=== PATIENT | female | born 1965 | race Two or more races ===

== ENCOUNTER 2021-02-14 06:34 | Day surgery (SDC) | payer MEDICAID ==
[2021-02-13 09:10] LABS: BLOOD UREA NITROGEN,BUN 10 mg/dL (7.0-18.0); CARBON DIOXIDE,CO2 27.8 mmol/L (21.0-32.0); CHLORIDE,CL 106 mmol/L (98-107); GLUCOSE RANDOM 105 mg/dL (74-106); POTASSIUM,K 3.9 mmol/L (3.5-5.1); SODIUM,NA 142 mmol/L (136-145)
[~2021-02-14 06:34] MED LIST: Lactated Ringers 1,000 ML IV SCH
[2021-02-14] MEDS ORDERED: Midazolam 1 MG/ML 2 ML SDV ONE (07:06)
[2021-02-14] MEDS ORDERED: Propofol 200 MG/20 ML SDV ONE (07:06)
[2021-02-14] MEDS ORDERED: fentaNYL 250 MCG/5 ML SDV ONE (07:07)
--- NOTE | 2021-02-14 07:07 | PCM.PREANE ---
Preanesthetic Assessment - Anesthesia/Transfusion/Family Hx Anesthesia History: Prior Anesthesia Without Reaction Family History of Anesthesia Reaction: No Transfusion History: No Prior Transfusion(s) - Review of Systems General: No Symptoms Pulmonary: No Symptoms Cardiovascular: No Symptoms Gastrointestinal: No Symptoms Neurological: No Symptoms Other: Reports: None - Physical Assessment NPO Status Date: 02/14/21 NPO Status Time: 04:00 (medications with sip of water) Vital Signs: Last Vital Signs Temp 36.5 C 02/14/21 06:40 Pulse 61 02/14/21 06:40 Resp 15 02/14/21 06:40 BP 129/86 02/14/21 06:40 Pulse Ox 97 02/14/21 06:40 Height: 1.56 m Weight: 83.915 kg ASA Class: 2 Mental Status: Alert & Oriented x3 Airway Class: Mallampati = 3 Dentition: Reports: Implants, Missing Tooth/Teeth (right upper molor) Thyro-Mental Finger Breadths: 3 Mouth Opening Finger Breadths: 3 ROM/Head Extension: Full Lungs: Clear to Auscultation, Normal Respiratory Effort Cardiovascular: Regular Rate, Regular Rhythm - Lab Values: Laboratory Last Values WBC 6.55 K/uL (4.0-11.0) 02/13/21 08:30 RBC 4.16 M/uL (4.30-5.90) L 02/13/21 08:30 Hgb 13.5 g/dL (12.0-16.0) 02/13/21 08:30 Hct 41.4 % (36.0-46.0) 02/13/21 08:30 MCV 99.5 fL (80.0-98.0) H 02/13/21 08:30 MCH 32.5 pg (27.0-32.0) H 02/13/21 08:30 MCHC 32.6 g/dL (31.0-37.0) 02/13/21 08:30 RDW Std Deviation 46.9 fl (28.0-62.0) 02/13/21 08:30 RDW Coeff of Bren 13 % (11.0-15.0) 02/13/21 08:30 Plt Count 297 K/uL (150-400) 02/13/21 08:30 MPV 10.70 fL (7.40-12.00) 02/13/21 08:30 Nucleated RBC % 0.0 /100WBC 02/13/21 08:30 Nucleated RBCs # 0 K/uL 02/13/21 08:30 Sodium 142 mmol/L (136-145) 02/13/21 08:30 Potassium 3.9 mmol/L (3.5-5.1) 02/13/21 08:30 Chloride 106 mmol/L (98-107) 02/13/21 08:30 Carbon Dioxide 27.8 mmol/L (21.0-32.0) 02/13/21 08:30 BUN 10 mg/dL (7.0-18.0) 02/13/21 08:30 Creatinine 0.8 mg/dL (0.6-1.0) 02/13/21 08:30 Est Cr Clr Drug Dosing 59.95 mL/min 02/13/21 08:30 Estimated GFR (MDRD) > 60.0 ml/min 02/13/21 08:30 Glucose 105 mg/dL (74-106) 02/13/21 08:30 Calcium 8.7 mg/dL (8.5-10.1) 02/13/21 08:30 Total Bilirubin 0.3 mg/dL (0.2-1.0) 02/13/21 08:30 AST 18 IU/L (15-37) 02/13/21 08:30 ALT 28 IU/L (14-63) 02/13/21 08:30 Alkaline Phosphatase 79 U/L (46-116) 02/13/21 08:30 Total Protein 7.4 g/dL (6.4-8.2) 02/13/21 08:30 Albumin 3.5 g/dL (3.4-5.0) 02/13/21 08:30 Globulin 3.9 g/dL (2.6-4.0) 02/13/21 08:30 Albumin/Globulin Ratio 0.9 (0.9-1.6) 02/13/21 08:30 Blood Type A POSITIVE 02/13/21 08:30 Antibody Screen NEGATIVE 02/13/21 08:30 - Allergies Allergies/Adverse Reactions: Allergies Allergy/AdvReac Type Severity Reaction Status Date / Time Penicillins Allergy Rash Verified 02/08/21 13:01 - Acknowledgements Anesthesia Type Planned: General Anesthesia (Triple Valve Tester present during the evaluation. The patient understands and accepts the anesthetic risks and benefits of General Anesthesia. All questions answered. Consent signed. ) Pt an Appropriate Candidate for the Planned Anesthesia: Yes Alternatives and Risks of Anesthesia Discussed w Pt/Guardian: Yes Pt/Guardian Understands and Agrees with Anesthesia Plan: Yes PreAnesthesia Questionnaire HEENT History: Reports: Other (See Below) Other HEENT History: wears glasses Cardiovascular History: Reports: Hypertension, Other (See Below) (Able to walk up 2 flights of stairs.) Respiratory History: Reports: None Gastrointestinal History: Reports: Gastritis, GERD (controlled) Genitourinary History: Reports: None [employer] [facility] HOME History: Reports: Musculoskeletal History: Reports: None Neurological History: Reports: None Psychiatric History: Reports: None Endocrine/Metabolic History: Reports: Obesity/BMI 30+ (BMI=34) Hematologic History: Reports: None Immunologic History: Reports: None Oncologic (Cancer) History: Reports: None Dermatologic History: Reports: None - Infectious Disease History Infectious Disease History: Reports: Other (See Below) (COVID NEGATIVE) - Past Surgical History Head Surgeries/Procedures: Reports: None HEENT Surgical History: Reports: None Cardiovascular Surgical History: Reports: None Respiratory Surgical History: Reports: None GI Surgical History: Reports: None Female Surgical History: Reports: Section (X2 (Second required conversion to IV sedation)) Endocrine Surgical History: Reports: None Neurological Surgical History: Reports: None Musculoskeletal Surgical History: Reports: None Oncologic Surgical History: Reports: None Dermatological Surgical History: Reports: None - SUBSTANCE USE Tobacco Use Status *Q: Never Tobacco User Days Per Week of Alcohol Use: 0 Recreational Drug Use History: No - HOME MEDS Home Medications: Home Meds Losartan [Cozaar] 2 tab PO DAILY 02/08/21 [History] atenoloL [Atenolol] 2 tab PO DAILY 02/08/21 [History] - CURRENT (IN HOUSE) MEDS Current Meds: Current Medications Lactated Ringer's (Ringers, Lactated) 1,000 mls @ 125 mls/hr IV [facility]ED [facility] Last Admin: 02/14/21 06:55 Dose: 125 mls/hr Documented by:
[2021-02-14] MEDS ORDERED: Dexamethasone 4 MG/ML 5 ML MDV ONE (07:26)
[2021-02-14] MEDS ORDERED: Ondansetron 4 MG/2 ML SDV ONE (07:26)
[2021-02-14] MEDS ORDERED: Acetaminophen/HYDROcodone 325-5 MG Tab PO PRN (09:02)
--- NOTE | 2021-02-14 09:07 | PCM.OPNOTE ---
- General Post-Op/Procedure Note Date of Surgery/Procedure: 02/14/21 Operative Procedure(s): Diagnostic hysteroscopy. Myosure polypectomy. Dilation & curettage Findings: 2 endometrial polyps, remainder of endometrium atrophic Pre Op Diagnosis: 55yo with postmenopausal bleeding and thickened endometrium on ultrasound Post-Op Diagnosis: Same Anesthesia Technique: General LMA Primary Surgeon: Adelia Villagran Anesthesia Provider: Tabitha Benjamin Pathology: Endometrial curettings and polyps Fluid Replacement, Intraop: 700 EBL in mLs: 10 Complications: None Condition: Good Free Text/Narrative:: Fluid deficit 400cc NS Bladder drained prior to procedure Uterus sounded to 8.5cm
--- NOTE | 2021-02-14 09:08 | PCM.POSTAN ---
POST ANESTHESIA ASSESSMENT - MENTAL STATUS Mental Status: Alert, Oriented - VITAL SIGNS Vital Signs: Last Vital Signs Temp 36.4 C 02/14/21 08:50 Pulse 64 02/14/21 09:05 Resp 14 02/14/21 09:05 BP 125/69 02/14/21 09:05 Pulse Ox 96 02/14/21 09:05 - RESPIRATORY Respiratory Status: Respiratory Rate WNL, Airway Patent, O2 Saturation Stable - CARDIOVASCULAR CV Status: Pulse Rate WNL, Blood Pressure Stable - GASTROINTESTINAL GI Status: No Symptoms - PAIN Pain Score: 0 - POST OP HYDRATION Hydration Status: Adequate & Stable - OBSERVATIONS Free Text/Narrative:: The patient is alert, oriented, and in no acute distress. Vss. She has no complaints at this time. There were no apparent anesthetic complications at this time.
[2021-02-14] MEDS ORDERED: Albuterol 0.083% 2.5 MG/3 ML Neb Soln NEB PRN (09:19)
[2021-02-14] MEDS ORDERED: Naloxone 0.4 MG/ML Syringe IVPUSH PRN (09:19)
[2021-02-14] MEDS ORDERED: fentaNYL 100 MCG/2 ML SDV IVPUSH PRN (09:19)
[2021-02-14] MEDS ORDERED: EPINEPHrine 1:10,000 1 MG/10 ML Syringe IVPUSH PRN (09:19)
[2021-02-14] MEDS ORDERED: 50% Dextrose in Water 50 ML Syringe IVPUSH PRN (09:19)
[2021-02-14] MEDS ORDERED: Atropine 0.1 MG/ML 10 ML Syringe IVPUSH PRN ×2 (09:19)
--- NOTE | 2021-02-14 10:01 | PCM48HPAN ---
Post Anesthesia Note - EVALUATION WITHIN 48HRS OF ANESTHETIC Vital Signs in Normal Range: Yes Patient Participated in Evaluation: Yes Respiratory Function Stable: Yes Airway Patent: Yes Cardiovascular Function Stable: Yes Hydration Status Stable: Yes Pain Control Satisfactory: Yes Nausea and Vomiting Control Satisfactory: Yes Mental Status Recovered: Yes Vital Signs: Last Vital Signs Temp 36.1 C 02/14/21 09:10 Pulse 57 L 02/14/21 09:40 Resp 15 02/14/21 09:40 BP 123/72 02/14/21 09:40 Pulse Ox 94 L 02/14/21 09:40 - COMMENTS/OBSERVATIONS Free Text/Narrative:: The patient has no complaints at this time. Discharge per criteria.
--- NOTE | 2021-02-14 11:55 | OR ---
SURGEON: Adelia Villagran MD DATE OF PROCEDURE: 02/14/2021 PREOPERATIVE DIAGNOSES: A 55-year-old with postmenopausal bleeding and a thickened endometrial stripe on ultrasound. POSTOPERATIVE DIAGNOSES: 1. A 55-year-old with postmenopausal bleeding. 2. Endometrial polyp x2. PROCEDURE: Diagnostic hysteroscopy, MyoSure polypectomy, dilation and curettage. PRIMARY SURGEON: Adelia Villgaran MD ANESTHESIA: General LMA. COMPLICATIONS: None. ESTIMATED BLOOD LOSS: 10 mL. FLUIDS: 700 mL of LR. URINE OUTPUT: Bladder drained prior to procedure. FLUID DEFICIT: 400 mL of normal saline. SPECIMEN: Endometrial curettings and polyps. FINDINGS: Hysteroscopy showed two pedunculated polyps, one near the right tubal ostia and the other in the left lower uterine segment. Endometrial cavity otherwise atrophic. DESCRIPTION OF PROCEDURE: The patient was taken to the operating room where general LMA was administered without difficulty. She was placed in the dorsal lithotomy position with legs in Yellofins stirrups. The patient was prepared and draped in the normal sterile fashion. A Graves speculum was inserted into the vagina. An Allis clamp was used to grasp the anterior lip of the cervix. The cervix was sequentially dilated to accommodate the 7 mm MyoSure hysteroscope using Hegar dilators. The uterus sounded to 8.52 cm. A 7 mm MyoSure hysteroscope was introduced under direct visualization and the uterus was distended with normal saline. The aforementioned findings were noted. The MyoSure device was connected to the hysteroscope and was used to perform a polypectomy. The hysteroscope was then withdrawn. The uterus was curetted in a clockwise fashion until gritty feeling was noted in all aspects of the uterus. The Allis clamps were removed from the cervix and hemostasis was noted. The patient tolerated the procedure well. Instrument and sponge counts were correct. The patient was awakened from anesthesia and taken to recovery room in stable condition. [id number] / MODL /[id number] MTDD
== END 2021-02-14 10:35 | disposition home or self-care (01) ==
LOC: MW.SDS 06:34
PROVIDERS: ATTEND Obstetrics & Gynecology
DX: N84.0 Polyp of corpus uteri (principal); I10 Essential (primary) hypertension; E66.9 Obesity, unspecified; Z68.34 Body mass index [BMI] 34.0-34.9, adult; Z79.899 Other long term (current) drug therapy; Z88.0 Allergy status to penicillin
CPT/HCPCS: 36415; 58558; 80053; 85027; 86850; 86900; 86901; 93005; J1100; J2250; J2405; J2704; J3010; J7120; 88305